=== PATIENT | female | born 1970 | race African-American/Black ===

== ENCOUNTER 2016-11-18 00:28 | Emergency (ER) | payer MEDICAID, OTHER ==
[2016-11-18 01:20] VITALS: TEMP 98.2
[2016-11-18 01:20] LABS: % IMMATURE GRANULYOCYTES 0.3 % (0.0-1.1); ABSOLUTE IMMATURE GRANULOCYTES 0.03 10^3/uL (0.00-0.10); ADD DIFF? NO; ADD MORPH? NO; ADD SCAN? NO; ATYPICAL LYMPHOCYTE FLAG 0 (0-99); FRAGMENT RBC FLAG 0 (0-99); HEMATOCRIT 33.9 % (38.0-47.0); LEFT SHIFT FLG 0 (0-99); LIPEMIA HEMOLYSIS FLAG 70 (0-99); MEAN CELL HEMOGLOBIN 26.5 pg (27.9-34.1); MEAN CELL HEMOGLOBIN CONCENTR. 29.5 g/dL (32.4-36.7); MEAN CELL VOLUME 89.9 fL (81.5-99.8); MEAN PLATELET VOLUME 9.7 fL (8.7-11.7); PLATELET CLUMPS FLAG 0 (0-99); PLATELET COUNT 312 10^3/uL (150-400); RED BLOOD CELL COUNT 3.77 10^6/uL (4.18-5.33); RED CELL DISTRIBUTION WIDTH 15.9 % (11.5-15.2)
[2016-11-18 01:45] LABS: ALANINE AMINOTRANSFERASE 28 IU/L (9-52); ALBUMIN 3.4 g/dL (3.5-5.0); ALKALINE PHOSPHATASE 69 IU/L (38-126); ANION GAP 12 mEq/L (8-16); ASPARTATE AMINOTRANSFERASE 16 IU/L (14-46); BILIRUBIN,TOTAL 0.6 mg/dL (0.1-1.4); CALCIUM 8.8 mg/dL (8.5-10.4); CARBON DIOXIDE 29 mEq/l (22-31); CHLORIDE 103 mEq/L (97-110); CREATININE 0.7 mg/dL (0.6-1.0); GLOMERULAR FILTRATION RATE > 60; GLUCOSE 98 mg/dL (70-100); POTASSIUM 3.9 mEq/L (3.5-5.2); SODIUM 144 mEq/L (134-144); TOTAL PROTEIN 6.8 g/dL (6.3-8.2)
--- NOTE | 2016-11-18 04:10 | EDPHY ---
H & P Stated Complaint: Legs hurt, worried about blood sugar Source: Patient, Old records - Personal History LMP (Females 10-55): 15-21 Days Ago Current Tetanus/Diphtheria Vaccine: Yes Current Tetanus Diphtheria and Acellular Pertussis (TDAP): Yes - Medical/Surgical History Hx Asthma: Yes Hx Chronic Respiratory Disease: Yes Hx Diabetes: Yes Hx Cardiac Disease: Yes Hx Renal Disease: No Hx Cirrhosis: No Hx Alcoholism: No Hx HIV/AIDS: No Hx Splenectomy or Spleen Trauma: No Other PMH: DM, COPD, ASthma, heart? - Social History Smoking Status: Former smoker Time Seen by Provider: 11/18/16 00:57 HPI/ROS: HPI The patient presents brought in by taxi for left leg pain. This has been present for several weeks. The patient is not sure what to do about the pain. She feels it on her left lateral thigh and makes her legs feel heavy. It has been constant though is worse with standing. The patient was at [facility] Emergency room and was evaluated for this. She was given a diagnosis of sciatica of the left side and malingering. She said that she was unable to walk , however had it had been documented that the day before when she was in the emergency room she was walking without difficulty. She became angry that she was not able to stay in the hospital. Before that she was seen at [facility]. She was given a taxi voucher because she has plans to stay at the [facility]. However, she says she has not had a PPD placed and has not been accepted yet at the [place] [facility]. She asked the haul driver to take her here to the ER because she did not have a place to go. On review of patient's outside hospital records it seems she has been to the ER on 5 occasions, including [facility] and [facility] emergency room. It seems she has been complaining of sciatica. REVIEW OF SYSTEMS Constitutional: No fever, no chills. Eyes: No discharge. ENT: No sore throat. Cardiovascular: No chest pain, no palpitations. Respiratory: No cough, no shortness of breath. Gastrointestinal: No abdominal pain, no vomiting. Genitourinary: No hematuria. Musculoskeletal: No back pain. Skin: No rashes. Neurological: No headache. PMHx: History of COPD, uses supplemental oxygen, DM2, history of left-sided sciatica, recent hip x-rays negative on 11/16, schizophrenia, CHF Soc Hx: Homeless, drinks alcohol FHx: PHYSICAL General Appearance: Alert, no distress Eyes: Pupils equal and round no pallor or injection ENT, Mouth: Mucous membranes moist Respiratory: There are no retractions, lungs are clear to auscultation Cardiovascular: Regular rate and rhythm Gastrointestinal: Abdomen is soft and non-tender, no masses, bowel sounds normal Neurological: A&O, moves all extremities Skin: Warm and dry, no rashes Musculoskeletal: Neck is supple non tender Extremities: symmetrical, full range of motion Psychiatric: Patient is oriented X 3, there is no agitation (Allyson Jones) Constitutional: Initial Vital Signs Temperature (C) 36.8 C 11/18/16 00:40 Heart Rate 102 H 11/18/16 00:40 Respiratory Rate 18 11/18/16 00:40 Blood Pressure 128/77 H 11/18/16 00:40 O2 Sat (%) 85 L 11/18/16 00:40 O2 Delivery Mode Nasal Cannula O2 (L/minute) 3 Allergies/Adverse Reactions: cephapirin Allergy (Verified 11/18/16 02:01) Penicillins Allergy (Verified 11/18/16 01:17) Medical Decision Making ED Course/Re-evaluation: I took over care of this patient at 7:00 a.m.. She is waiting a case management consultation. She has been medically cleared. Goal is to get her placed at 1 of the local shelters. 10:00 a.m., patient has been seen by case management. They have arranged for a room for her to stay at at the [facility]. She feels comfortable with this plan. She has been instructed on follow-up with [facility] for her medical needs. She is not suicidal. Return to emergency department precautions were reviewed with her. She understands for follow-up. She was discharged in good condition by taxi to [facility] [place] [facility]. ( Navid Herr) Differential Diagnosis: This is a 46-year-old female with COPD on home oxygen, homelessness who is brought in for evaluation for left-sided leg pain. The patient has a multitude of complaints and is asking to be checked for diabetes. On review of records, she has been to the emergency room 5 times in the last 2 days and has been discharge each time. She does not seem psychotic, denies SI or HI, does not meet criteria for mental health hold. She has disorganized, does not have a place to stay, though would like to stay at the [place] [facility]. Labs were checked in the ER and were unremarkable. The patient slept. She had some difficulty getting to the bathroom and required assistance. This seems consistent with her ER visits to other hospitals in which she complains that she cannot walk, however is able to. This is raise suspicion by prior providers for malingering. Given that she is homeless, new to the area, I plan on keeping her in the emergency room until 9:00 a.m. when she can be evaluated by the employment case manager. The case will be signed out at 7:00 a.m. to the oncoming provider Dr. Herr pending case management evaluation. She has no acute medical issues and is clear for discharge from the emergency room otherwise. (Allyson Jones) - Data Points Laboratory Results: Laboratory Results 11/18/16 01:10 11/18/16 01:10 11/18/16 11/18/16 01:10 01:10 WBC 8.82 10^3/uL 10^3/uL (3.80-9.50) RBC 3.77 10^6/uL L 10^6/uL (4.18-5.33) Hgb 10.0 g/dL L g/dL (12.6-16.3) Hct 33.9 % L % (38.0-47.0) MCV 89.9 fL fL (81.5-99.8) MCH 26.5 pg L pg (27.9-34.1) MCHC 29.5 g/dL L g/dL (32.4-36.7) RDW 15.9 % H % (11.5-15.2) Plt Count 312 10^3/uL 10^3/uL (150-400) MPV 9.7 fL fL (8.7-11.7) Neut % (Auto) 72.5 % % (39.3-74.2) Lymph % (Auto) 17.5 % % (15.0-45.0) Bay % (Auto) 5.2 % % (4.5-13.0) Eos % (Auto) 4.0 % % (0.6-7.6) Baso % (Auto) 0.5 % % (0.3-1.7) Nucleat RBC Rel Count 0.0 % % (0.0-0.2) Absolute Neuts (auto) 6.40 10^3/uL 10^3/uL (1.70-6.50) Absolute Lymphs (auto) 1.54 10^3/uL 10^3/uL (1.00-3.00) Absolute Monos (auto) 0.46 10^3/uL 10^3/uL (0.30-0.80) Absolute Eos (auto) 0.35 10^3/uL 10^3/uL (0.03-0.40) Absolute Basos (auto) 0.04 10^3/uL 10^3/uL (0.02-0.10) Absolute Nucleated RBC 0.00 10^3/uL 10^3/uL (0-0.01) Immature Gran % 0.3 % % (0.0-1.1) Immature Gran # 0.03 10^3/uL 10^3/uL (0.00-0.10) Sodium 144 mEq/L mEq/L (134-144) Potassium 3.9 mEq/L mEq/L (3.5-5.2) Chloride 103 mEq/L mEq/L (97-110) Carbon Dioxide 29 mEq/l mEq/l (22-31) Anion Gap 12 mEq/L mEq/L (8-16) BUN 9 mg/dL mg/dL (7-23) Creatinine 0.7 mg/dL mg/dL (0.6-1.0) Estimated GFR > 60 Glucose 98 mg/dL mg/dL (70-100) Calcium 8.8 mg/dL mg/dL (8.5-10.4) Total Bilirubin 0.6 mg/dL mg/dL (0.1-1.4) AST 16 IU/L IU/L (14-46) ALT 28 IU/L IU/L (9-52) Alkaline Phosphatase 69 IU/L IU/L (38-126) Total Protein 6.8 g/dL g/dL (6.3-8.2) Albumin 3.4 g/dL L g/dL (3.5-5.0) Departure - Departure Disposition: Home, Routine, Self-Care Clinical Impression: Sciatica of left side, Homeless COPD (chronic obstructive pulmonary disease) Qualifiers: COPD type: unspecified COPD Qualified Code(s): J44.9 - Chronic obstructive pulmonary disease, unspecified Condition: Good Instructions: Sciatica (ED) Additional Instructions: Read and follow provided instructions. Follow-up with your primary care physician at [facility] as instructed in 1 -2 days for re-evaluation. Ibuprofen dosin mg every 6 hours with meals for the next 3 days only. Return to the emergency department for worsening symptoms or other serious concerns. Referrals: [facility],. [Clinic] - As per Instructions
[2016-11-18 04:52] VITALS: RESP 20
[2016-11-18 11:34] VITALS: BP 130/92; PULSE 93; O2SAT 95
== END 2016-11-18 11:30 | disposition home or self-care (01) ==
DX: M54.32 Sciatica, left side (principal); J44.9 Chronic obstructive pulmonary disease, unspecified; E11.9 Type 2 diabetes mellitus without complications; Z59.0 Homelessness; Z87.891 Personal history of nicotine dependence

== ENCOUNTER 2016-11-18 21:44 | Emergency (ER) | payer MEDICAID ==
--- NOTE | 2016-11-18 21:50 | EDPHY ---
H & P HPI/ROS: CHIEF COMPLAINT: Fell out of a chair. HISTORY OF PRESENT ILLNESS: This patient is a 46 year old female with history of sciatica arriving via EMS following a fall through a chair this evening. She states the chair broke beneath her and she fell to the floor. Her legs and feet went numb and she states the chair remained stuck on her back until paramedics arrived. She was staying in the women's dorm at the [facility] at the time. She states she is supposed to take cortisone for her sciatica, but she does not like the effects of that medication. She feels her sciatic pain is slightly relieved following the maneuvers by EMS crews to lift her from the chair this evening. sShe denies new back or leg pain, new numbness, new weakness, bowel or bladder problems. No chest pain, shortness of breath, nausea, or other associated symptoms. The patient has asked for a motel voucher for three or four nights rather than go back to [facility], because she feels staff there were inhospitable and distrustful. Of note, she was seen in ED yesterday with sciatica and has reportedly been seen three times (in different EDs) this week. REVIEW OF SYSTEMS: A ten point review of systems was performed and is negative with the exception of the items mentioned in the HPI. - Medical/Surgical History PMH: 1. 2. Sciatica 3. Diabetes mellitus type 2 (Metformin) 4. COPD (Home oxygen) 5. Obesity 6. Schizophrenia Hx Asthma: Yes Hx Chronic Respiratory Disease: Yes Hx Diabetes: Yes Hx Cardiac Disease: Yes Hx Renal Disease: No Hx Cirrhosis: No Hx Alcoholism: No Hx HIV/AIDS: No Hx Splenectomy or Spleen Trauma: No - Social History Smoking Status: Former smoker Additional Social History: Former smoker. Homeless. Staying at [facility] currently. Denies use of alcohol or drugs. - Physical Exam Exam: General Appearance: Alert. Vital signs reviewed. Eyes: Pupils equal and round, no conjunctival injection, no discharge. Anicteric. Neck: No lymphadenopathy. Respiratory: Lungs are clear to auscultation; no wheezes, rales, or rhonchi. Cardiovascular: Regular rate and rhythm; no murmur, rub, or gallop. Gastrointestinal: Abdomen is obese, soft and nontender. Skin: Warm and dry, no rashes on exposed skin, normal color. Back: Nontender to palpation over the thoracolumbar spine. Mild tenderness left sciatic notch. Extremities: No lower extremity edema, no calf tenderness or swelling. Neurological: Alert and oriented. Moving all four extremities spontaneously. Sensation intact to LT over lower extremities except for slight decrease left lateral lower extremity. 5/5 hip flex, knee flex/ext, plantar, dorsi bilaterally. Psychiatric: Slightly pressured speech. No agitation. Constitutional: Initial Vital Signs Temperature (C) 36.7 C 11/18/16 21:51 Heart Rate 99 11/18/16 21:51 Respiratory Rate 16 11/18/16 21:51 Blood Pressure 104/67 11/18/16 21:51 O2 Sat (%) 95 11/18/16 21:51 O2 Delivery Mode Nasal Cannula O2 (L/minute) 3 Allergies/Adverse Reactions: cephapirin Allergy (Verified 11/18/16 21:51) Penicillins Allergy (Verified 11/18/16 21:51) Home Medications: Medication Instructions Recorded Lasix 11/21/16 Metformin HCl [Metformin 1000 mg] 11/21/16 Potassium Citrate 11/21/16 Medical Decision Making ED Course/Re-evaluation: This patient is a 46 year old female returning to the Emergency Department after falling through a chair earlier this evening. Physical exam reveals tenderness to her left buttock and decreased sensation in her left leg, likely related to her sciatica. No other trauma or complaints. Plan to discharge home in good condition. She has asked for motel vouchers several times, and I explained that we are unable to provide such a thing, but she may follow up with case management in the morning for continued discussion of housing options. Departure - Departure Disposition: Home, Routine, Self-Care Clinical Impression: Sciatica of left side Condition: Good Instructions: Sciatica (ED) Additional Instructions: 1. Follow up with the [facility] for symptoms unresolved or continued concerns. 2. You may call case management tomorrow morning for further discussion of housing options. Referrals: [facility],. [Clinic] - As per Instructions Report Scribed for: Fariba Jordan Report Scribed by: Arianna Singleton Date of Report: 11/18/16 Time of Report: 22:15 Physician Review and Approval Statement: 11/18/16 21:49 Portions of this note were transcribed by the medical equipment repairer. I, Dr. Fariba Jordan, personally performed the history, physical exam, and medical decision- making; and confirmed the accuracy of the information in the transcribed note.
[2016-11-18 21:56] VITALS: BP 104/67; PULSE 99; RESP 16; TEMP 98.1; O2SAT 95
== END 2016-11-18 22:42 | disposition home or self-care (01) ==
LOC: EDUNIT#
DX: M54.32 Sciatica, left side (principal); E11.9 Type 2 diabetes mellitus without complications; J44.9 Chronic obstructive pulmonary disease, unspecified; Z79.84 Long term (current) use of oral hypoglycemic drugs; Z87.891 Personal history of nicotine dependence; W07.XXXA Fall from chair, initial encounter

== ENCOUNTER 2016-11-19 13:50 | Emergency (ER) | payer MEDICAID ==
--- NOTE | 2016-11-19 14:25 | EDPHY ---
H & P - Medical/Surgical History Hx Asthma: Yes Hx Chronic Respiratory Disease: Yes Hx Diabetes: Yes Hx Cardiac Disease: Yes Hx Renal Disease: No Hx Cirrhosis: No Hx Alcoholism: No Hx HIV/AIDS: No Hx Splenectomy or Spleen Trauma: No Other PMH: DM, COPD, ASthma, heart? - Social History Smoking Status: Former smoker Allergies/Adverse Reactions: cephapirin Allergy (Verified 11/18/16 21:51) Penicillins Allergy (Verified 11/18/16 21:51) Medical Decision Making ED Course/Re-evaluation: CHIEF COMPLAINT: Diarrhea HISTORY OF PRESENT ILLNESS: The patient is a homeless 46 y/o female returning for the 3rd time in 24 hours and complaining of diarrhea onset today. She denies abdominal pain, fever, or vomiting, but is otherwise unable to provide much history regarding her diarrhea. REVIEW OF SYSTEMS: A 10 point review of systems was performed and is negative with the exception of the elements mentioned in the history of present illness. PHYSICAL EXAM: General Appearance: Alert, well hydrated, appropriate, and non-toxic appearing. Head: Atraumatic without scalp tenderness or obvious injury Eyes: Pupils equal, round, reactive to light and accommodation, EOMI, no trauma , no injection. Ears: Clear bilaterally, no perforation, normal landmarks Nose: Atraumatic, no rhinorrhea, clear. Throat: There is no erythema or exudates, no lesions, normal tonsils, mucus membranes moist. Neck: Supple, non-tender, no lymphadenopathy. Respiratory: No retractions, no distress, no wheezes, and no accessory muscle use. Lungs are clear to auscultation bilaterally. Cardiovascular: Regular rate and rhythm, no murmurs, rubs, or gallops. Good capillary refill all extremities. Gastrointestinal: Abdomen is soft, non-tender, non-distended, no masses, no rebound, no guarding, no peritoneal signs. Musculoskeletal: Normal active ROM of all extremities, atraumatic. Neurological: Alert, appropriate, and interactive. Nonfocal neuro exam Skin: No rashes, good turgor, no nodules on palpation. PAST MEDICAL HISTORY: Diabetes, COPD, asthma PAST SURGICAL HISTORY: Denies SOCIAL HISTORY: Smoker, homeless DIFFERENTIAL DIAGNOSIS: The differential diagnosis for the patient's diarrhea included but was not limited to gastroenteritis, gastritis, appendicitis, and medication side effect. MEDICAL DECISION MAKING: This is a 46 y/o female presenting with a 1-day history of diarrhea. Her abdomen is benign. She is afebrile. Plan for stool studies and discharge with standard diarrhea instructions. Return precautions given. She is comfortable with this plan. Departure - Departure Disposition: Home, Routine, Self-Care Clinical Impression: Diarrhea Qualifiers: Diarrhea type: unspecified type Qualified Code(s): R19.7 - Diarrhea, unspecified Condition: Good Instructions: Acute Diarrhea (ED) Additional Instructions: Follow up with your primary care provider for ongoing symptoms. Use Imodium, available [id number], as directed on the packaging for diarrhea. Referrals: NONE *PRIMARY CARE P,. [Primary Care Provider] - As per Instructions [facility],. [Clinic] - As per Instructions Report Scribed for: Rg Mondragon Report Scribed by: Denise Sherman Date of Report: 11/19/16 Time of Report: 14:27
[2016-11-19 14:40] VITALS: BP 143/96; PULSE 100; RESP 18; TEMP 98.1; O2SAT 92
== END 2016-11-19 14:53 | disposition home or self-care (01) ==
LOC: EDUNIT#
DX: R19.7 Diarrhea, unspecified (principal); E11.9 Type 2 diabetes mellitus without complications; J44.9 Chronic obstructive pulmonary disease, unspecified; Z87.891 Personal history of nicotine dependence

== ENCOUNTER 2016-11-21 08:00 | Emergency (ER) | payer OTHER, MEDICAID ==
[2016-11-21 08:10] VITALS: TEMP 98.1
--- NOTE | 2016-11-21 08:43 | EDPHY ---
H & P Time Seen by Provider: 11/21/16 08:36 HPI/ROS: CHIEF COMPLAINT: Calf spasm HISTORY OF PRESENT ILLNESS: Patient is a 46-year-old female who presents emergency department complaining of left calf "charley horse." Patient states she got up put on her shoes and started to walk. She developed a charley horse in her left calf. It is now subsided. She has no pain at this time. No calf swelling. She has chronic skin changes on her lower extremities that are unchanged. She is asking for a potassium pill. She states she normally takes potassium supplementation. She has no chest pain or shortness of breath. No abdominal pain. She was here for recent diarrhea but has no diarrhea at this time. REVIEW OF SYSTEMS: My complete review of systems is negative except as mentioned in the HPI. Past Medical/Surgical History: Includes diabetes, COPD, asthma Social history: Patient does not smoke. Smoking Status: Former smoker Physical Exam: Vitals noted GENERAL: No acute distress, alert. Obese HEENT: Eyes normal to inspection, normal pharynx, no signs of dehydration. NECK: No thyromegaly, no lymphadenopathy, supple. RESPIRATORY: Clear to auscultation bilaterally, no rales, rhonchi or wheezing. CVS: Regular rate and rhythm, no rubs, murmurs, or gallops. ABDOMEN: Soft, nontender, nondistended, no organomegaly. BACK: Normal to inspection, no CVA tenderness. SKIN: Normal color, no rash, warm, dry. No pallor. EXTREMITIES: No pedal edema, no calf tenderness, no Homans sign or cords, no joint swelling. Bilateral skin stasis changes. NEURO/PSYCH: Alert and oriented, normal mood and affect, normal motor sensory exam. Constitutional: Initial Vital Signs Temperature (C) 36.7 C 11/21/16 08:00 Heart Rate 97 11/21/16 08:00 Respiratory Rate 16 11/21/16 08:00 Blood Pressure 115/77 11/21/16 08:00 O2 Sat (%) 79 L 11/21/16 08:00 O2 Delivery Mode Room Air Allergies/Adverse Reactions: cephapirin Allergy (Verified 11/18/16 21:51) Penicillins Allergy (Verified 11/18/16 21:51) Home Medications: Medication Instructions Recorded Lasix 11/21/16 Metformin HCl [Metformin 1000 mg] 11/21/16 Potassium Citrate 11/21/16 Medical Decision Making ED Course/Re-evaluation: In the emergency department I discussed possible etiologies with the patient. I answered all her questions. An I-STAT potassium was ordered. Potassium was unremarkable. I discussed the results with the patient. I answered all her questions. She felt comfortable with discharge. Her spasms have resolved. She is given warnings prior to leaving. Differential Diagnosis: My differential includes but is not limited to electrolyte abnormality, dehydration, sugar abnormality, muscle spasm, malingering, DVT, arterial occlusion - Data Points Laboratory Results: 11/21/16 08:53 POC Hgb 11.6 gm/dL L gm/dL (12.6-16.3) POC Hct 34 % L % (38-47) POC Sodium 142 mEq/L mEq/L (134-144) POC Potassium 3.6 mEq/L mEq/L (3.3-5.0) POC Chloride 98 mEq/L mEq/L (97-110) POC BUN 4 mg/dL L mg/dL (7-23) POC Creatinine 0.7 mg/dL mg/dL (0.6-1.0) POC Glucose 98 mg/dL mg/dL (70-100) Point of Care Test Results: 11/21/16 08:53 POC Sodium 142 POC Potassium 3.6 POC Chloride 98 POC BUN 4 L POC Creatinine 0.7 POC Glucose 98 Departure - Departure Disposition: Home, Routine, Self-Care Clinical Impression: Muscle spasm of right calf Condition: Good Instructions: Muscle Spasm (ED) Additional Instructions: Return with increasing spasm, pain or any other concerns. Referrals: [facility],. [Clinic] - As per Instructions
[2016-11-21 10:45] VITALS: BP 134/86; PULSE 81; RESP 17; O2SAT 96
== END 2016-11-21 10:44 | disposition home or self-care (01) ==
LOC: EDUNIT# → EDBD
DX: M62.838 Other muscle spasm (principal); J44.9 Chronic obstructive pulmonary disease, unspecified; E11.9 Type 2 diabetes mellitus without complications; Z79.84 Long term (current) use of oral hypoglycemic drugs; Z87.891 Personal history of nicotine dependence
CPT/HCPCS: 82947-QW

== ENCOUNTER 2016-11-24 13:07 | Emergency (ER) | payer OTHER, MEDICAID ==
[2016-11-24 13:26] VITALS: BP 136/73; PULSE 111; RESP 16; TEMP 97.3
[2016-11-24 13:27] VITALS: O2SAT 93
--- NOTE | 2016-11-24 13:37 | EDPHY ---
H & P Time Seen by Provider: 11/24/16 13:08 HPI/ROS: Chief complaint. Foot numbness HPI. 46-year-old female here by EMS with complaint of foot numbness. She has had this multiple times before it is worse after she has been sitting. She has history of neuropathy in her feet. The numbness comes and goes. She has no leg weakness and has been walking. No bowel or bladder symptoms. Denies fever , chest discomfort, trouble breathing. ROS Constitutional. no fever/chills, no weakness Eyes. no problems with vision ENT. no sore throat, no nasal drainage Cardiovascular. no chest pain Respiratory. no shortness of breath, no cough Abdominal. no abdominal pain, no nausea/vomiting, no diarrhea . no problems urinating MS. no calf pain/swelling, no neck/back pain, no joint pain Skin. no rash Lymph. no swollen glands Neuro. Numbness to feet Past Medical/Surgical History: Diabetes Social History: , nonsmoker, no alcohol Smoking Status: Former smoker Physical Exam: General Appearance: Alert well-developed female no distress vital signs stable Eyes: Pupils equal and round no pallor or injection. ENT, Mouth: Mucous membranes are moist. Respiratory: There are no retractions, lungs are clear to auscultation. Cardiovascular: Regular rate and rhythm. Gastrointestinal: Abdomen is soft and nontender, no masses, bowel sounds normal. Neurological: Awake and alert, sensory and motor exams grossly normal. Skin: Warm and dry, no rashes. Musculoskeletal: Neck is supple nontender. Extremities chronic stasis ulcers in edema to legs. No significant cellulitis Psychiatric: Patient is oriented X 3, there is no agitation. Constitutional: Initial Vital Signs Temperature (C) 36.3 C 11/24/16 13:07 Heart Rate 111 H 11/24/16 13:07 Respiratory Rate 16 11/24/16 13:07 Blood Pressure 136/73 H 11/24/16 13:07 O2 Sat (%) 87 L 11/24/16 13:07 O2 Delivery Mode Room Air O2 (L/minute) 3 Allergies/Adverse Reactions: cephapirin Allergy (Verified 11/18/16 21:51) Penicillins Allergy (Verified 11/18/16 21:51) Home Medications: Medication Instructions Recorded Lasix 11/21/16 Metformin HCl [Metformin 1000 mg] 11/21/16 Potassium Citrate 11/21/16 Gabapentin 11/24/16 Lyrica 11/24/16 Valproic Acid 11/24/16 Medical Decision Making ED Course/Re-evaluation: Patient remained stable. On re-evaluation at 2:15 p.m. patient notes that her foot sensation has returned to baseline. Patient has also been evaluated by rn case management as she is requesting a bus pass Differential Diagnosis: I considered cauda equina syndrome. I think that this is likely exacerbation of her neuropathy caused by sitting this morning. Departure - Departure Disposition: Home, Routine, Self-Care Clinical Impression: Neuropathy Condition: Good Instructions: Peripheral Neuropathy (ED) Additional Instructions: Return for worsening symptoms. Follow up at [facility]. Referrals: NONE *PRIMARY CARE P,. [Primary Care Provider] - As per Instructions [facility] [Outside] - As per Instructions
== END 2016-11-24 14:47 | disposition home or self-care (01) ==
LOC: EDUNIT#
DX: G62.9 Polyneuropathy, unspecified (principal); E11.9 Type 2 diabetes mellitus without complications; Z87.891 Personal history of nicotine dependence; Z79.84 Long term (current) use of oral hypoglycemic drugs

== ENCOUNTER 2016-11-25 06:06 | Emergency (ER) | payer OTHER, MEDICAID ==
[2016-11-25] MEDS ORDERED: ASPIRIN EC 325 MG TAB PO ONE (06:15)
--- NOTE | 2016-11-25 06:15 | EDPHY ---
H & P HPI/ROS: HPI The patient presents brought in by ambulance from the [facility] asking for a hydrocodone pill for her sciatica. She says she is having pain of her right leg and is not getting better. The pain is been constant and is moderate in severity. She has been here multiple times over the last several days for similar. She is asking for an aspirin.. REVIEW OF SYSTEMS Constitutional: No fever, no chills. Eyes: No discharge. ENT: No sore throat. Cardiovascular: No chest pain, no palpitations. Respiratory: No cough, no shortness of breath. Gastrointestinal: No abdominal pain, no vomiting. Genitourinary: No hematuria. Musculoskeletal: No back pain. Skin: No rashes. Neurological: No headache. PMHx: Diabetes, COPD on oxygen Soc Hx: Currently residing in the [facility] PHYSICAL General Appearance: Alert, no distress Eyes: Pupils equal and round no pallor or injection ENT, Mouth: Mucous membranes moist Respiratory: There are no retractions, lungs are clear to auscultation Cardiovascular: Regular rate and rhythm Gastrointestinal: Abdomen is soft and non-tender, no masses, bowel sounds normal Neurological: A&O, moves all extremities Skin: Warm and dry, no rashes Musculoskeletal: Neck is supple non tender Extremities: symmetrical, legs and feet are nontender to palpation, there are venous stasis changes on both of her legs Psychiatric: Patient is oriented X 3, there is no agitation Source: Patient Exam Limitations: No limitations - Medical/Surgical History Hx Asthma: Yes Hx Chronic Respiratory Disease: Yes Hx Diabetes: Yes Hx Cardiac Disease: Yes Hx Renal Disease: No Hx Cirrhosis: No Hx Alcoholism: No Hx HIV/AIDS: No Hx Splenectomy or Spleen Trauma: No Other PMH: DM, COPD, ASthma, heart? - Social History Smoking Status: Former smoker Constitutional: Initial Vital Signs Temperature (C) 36.8 C 11/25/16 06:19 Heart Rate 91 11/25/16 06:19 Respiratory Rate 20 11/25/16 06:19 Blood Pressure 127/89 H 11/25/16 06:19 O2 Sat (%) 94 11/25/16 06:19 O2 (L/minute) 3 Allergies/Adverse Reactions: cephapirin Allergy (Verified 11/25/16 06:19) Penicillins Allergy (Verified 11/25/16 06:19) Home Medications: Medication Instructions Recorded Lasix 11/21/16 Metformin HCl [Metformin 1000 mg] 11/21/16 Potassium Citrate 11/21/16 Gabapentin 11/24/16 Lyrica 11/24/16 Valproic Acid 11/24/16 Medical Decision Making Differential Diagnosis: This is a 46-year-old female, brought in by ambulance from the homeless [facility] with history of diabetes, COPD on oxygen, sciatica who complains of his painful right leg due to her sciatica. She has history of similar and has had multiple ER visits for this. There is suspicion for malingering. On exam, she has no neurologic deficits and is generally well-appearing, I cannot elicit any tenderness on her exam. Differential diagnosis includes sciatica, muscle sprain, malingering. I will give her an aspirin per her request and she will be discharged from the emergency room. Departure - Departure Disposition: Home, Routine, Self-Care Clinical Impression: Right foot pain Condition: Good Instructions: Arthralgia (ED) Referrals: [facility],. [Clinic] - As per Instructions
[2016-11-25 06:22] VITALS: BP 127/89; PULSE 91; RESP 20; TEMP 98.2; O2SAT 94
== END 2016-11-25 06:55 | disposition home or self-care (01) ==
LOC: EDUNIT#
DX: M79.671 Pain in right foot (principal); E11.9 Type 2 diabetes mellitus without complications; J44.9 Chronic obstructive pulmonary disease, unspecified; Z79.84 Long term (current) use of oral hypoglycemic drugs; Z87.891 Personal history of nicotine dependence